=== PATIENT | male | born 1985 | race Caucasian/White ===

== ENCOUNTER 2024-07-01 08:59 | Outpatient (AMB) | payer OTHER, SELFPAY ==
--- NOTE | 2024-07-01 09:14 | A.OFFPC_ITS ---
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 Intake Note: New patient visit Freezer Assistant Required: No Medication List - Last Reconciled 07/01/24 by Barbra Ellis PA-C dupilumab (Dupixent) mg subcut Tobacco use date assessed: 07/01/24 Dental Screening Dental Screen Date: 07/01/24 Did you have a dental visit in the last 12 months?: Yes Did you have a dental problem in the last 6 months where you did not have access to dental care?: No Was dental information given to patient?: Patient has dentist HPI MATTRESS FILLER Est care HPI Details Patient is a 39-year-old male with a significant past medical history of eczema, hyperlipidemia presenting [facility] to [facility]. -he does complain today of flank pain on the. He states that it started on Friday and woke him up in the middle of the night. He is very worried that he is developing a kidney stone. He denies any known history of stones and has not noticed any blood in the urine. No urinary changes. He states he does not know why you would otherwise have back pain unless it was related to shoveling but he shoveled over the weekend. The pain today is resolved. CV: BP WNL. Last lipids were a little elevated. no cp or sob. He does get intermittent palpitations but less since reducing stress at work. He has had a neg ETT and holter and echo last year. He did follow with cardiology who states no need for further workup/eval unless anything changes. Derm: following with [facility] for management of eczema. Has been well controlled since starting dupixent. 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 1. Little interest or pleasure in doing things: not at all 2. Feeling down, depressed, or hopeless: not at all 3. Trouble falling or staying asleep, or sleeping too much: not at all 4. Feeling tired or having little energy: not at all 5. Poor appetite or overeating: several days 6. Feeling bad about yourself - or that you are a failure or have let yourself or your family down: not at all 7. Trouble concentrating on things, such as reading the newspaper or watching television: not at all 8. Moving or speaking so slowly that other people could have noticed. Or the opposite - being so fidgety or restless that you have been moving around a lot more than usual: not at all 9. Thoughts that you would be better off or of hurting yourself in some way: not at all Total score: 1 Depression Screening Interpretation: Negative Depression Screening Done: Yes 08830 - PHQ-9 Billing: Yes Source: Developed by Drs. Kin De La Cruz, Lizzie Shah, Dallin Romero and colleagues, with an educational ambar from [employer]. Thrive Questionnaire Date Thrive assessed: 06/28/24 I am a: Patient What is your living situation today?: I have a steady place to live Within the past 12 months, did the food you bought not last and you didn't have the money to get more?: Never true Within the past 12 months, did you worry whether your food would run out before you got money to buy more?: Never true Do you have trouble paying for medicines?: No Do you have trouble getting transportation to medical appointments?: No Do you have trouble paying your heating and electricity bill?: No Do you have trouble taking care of your child, family member or friend?: No Do you have trouble with day-to-day activities such as bathing, preparing meals, shopping, managing finances, etc.?: No Are you currently unemployed and looking for a job?: No Are you interested in more education?: No Please select the resources that you would like help with: None Currently or been in a relationship where the following occur: No concerns reported THRIVE Score: 0 AUDIT C Alcohol Use Questionnaire (AUDIT-C) 1. How often do you have a drink containing alcohol?: 2-3 times a week 2. How many drinks containing alcohol do you have on a typical day when you are drinking?: 1 or 2 3. How often do you have six or more drinks on one occasion?: Monthly Total Score: 5 Score Reviewed/Action Taken: Yes GUS-7 AMB Questionnaire GUS-7 Date GUS - 7 assessed: 07/01/24 Feeling nervous, anxious, or on edge: 0 = Not at all Not being able to stop or control worryin = Not at all Worrying too much about different things: 0 = Not at all Trouble relaxin = Not at all Being so restless that it is hard to sit still: 0 = Not at all Becoming easily annoyed or irritable: 0 = Not at all Feeling afraid as if something awful might happen: 0 = Not at all Total GUS-7 score (0-4 normal; 5-9 mild; 10-14 moderate; 15-21 severe): 0 Source: Developed by Drs. Kin De La Cruz, Lizzie Shah, Dallin Romero and colleagues, with an educational ambar from [employer]. GUS-7 Assessment Billing GUS-7 Assessment Tool: GUS-7 Assessment 07181 Physical exam (Primary Care) Vital Signs: Last Vital Signs Pulse 58 07/01/24 09:20 Resp 16 07/01/24 09:20 BP 126/72 07/01/24 09:20 Pulse Ox 95 07/01/24 09:20 Oxygen Delivery Method Room Air 07/01/24 09:20 Tobacco/Smoking Status: Tobacco use Status Tobacco use date assessed 07/01/24 07/01/24 09:21 Patient Tobacco Use Status Never used Tobacco 07/01/24 09:21 e-Cigarette/Vaping Use Never Used 07/01/24 09:21 PHQ-9: PHQ-9 Score PHQ-9: Total score 1 07/01/24 09:22 Depression Screening Interpretation: Negative Thrive Assessment: Date of Thrive Assessment Date Thrive assessed 06/28/24 07/01/24 09:21 Currently or been in a relationship where the following occur: No concerns reported Const Orientation/consciousness: patient oriented x3 HENMT Ears: hearing grossly normal bilaterally Neck Thyroid: Thyroid normal Lymphatic: no lymphadenopathy noted Resp Auscultation: clear to auscultation bilaterally Cardio Rate: regular rate Rhythm: regular rhythm Heart sounds: S1 normal heart sound present and S2 normal heart sound present GI Inspection: Yes normal to inspection Palpation (GI): Soft to palpation and Other GI palpation findings present (nontender, no cva tenderness) Auscultation: normoactive bowel sounds Rectal Exam - Male: Yes deferred Skin General skin exam: no rashes or lesions noted Neuro General: patient oriented x3, gait normal and no focal motor deficits Coding Level of Care Code Est Pt Level 4 (13764) Diagnoses Flank pain R10.9 Dyslipidemia E78.5 Atopic dermatitis, unspecified type L20.9 Atopic dermatitis type: unspecified Additional Codes GUS-7 Assessment Billing - GUS-7 Assessment Tool: GUS-7 Assessment 62381 ([id number]) PHQ-9 - 46844 - PHQ-9 Billing: Yes ([id number]) Assessment & Plan Assessment & Plan (1) Flank pain: Code(s): R10.9 - Unspecified abdominal pain Category: Medical Plan: u/s, labs and urine ordered will follow up pending tests (2) Dyslipidemia: Code(s): E78.5 - Hyperlipidemia, unspecified Category: Medical Plan: last ldl elevated. will check today and follow up pending tests (3) Atopic dermatitis: Code(s): L20.9 - Atopic dermatitis, unspecified Category: Medical Qualifiers: Atopic dermatitis type: unspecified Qualified Code(s): L20.9 - Atopic dermatitis, unspecified Plan: well managed on dupixent continue following with [facility] Orders: Orders Complete Blood Count Auto Diff Today E78.5 - Hyperlipidemia, unspecified, R10.9 - Unspecified abdominal pain, Z00.00 - Encounter for general adult medical examination without abnormal findings TSH reflex Free T4 Today E78.5 - Hyperlipidemia, unspecified, R10.9 - Unspecified abdominal pain, Z00.00 - Encounter for general adult medical examination without abnormal findings UA CC w/rflx Micro + Cult Today E78.5 - Hyperlipidemia, unspecified, R10.9 - Unspecified abdominal pain, Z00.00 - Encounter for general adult medical examination without abnormal findings, Z13.220 - Encounter for screening for lipoid disorders US renal BI Today E78.5 - Hyperlipidemia, unspecified, R10.9 - Unspecified abdominal pain, Z00.00 - Encounter for general adult medical examination without abnormal findings Comprehensive [place]. Panel Fast Today E78.5 - Hyperlipidemia, unspecified, R10.9 - Unspecified abdominal pain, Z00.00 - Encounter for general adult medical exami [facility] without abnormal findings Lipid Panel Today E78.5 - Hyperlipidemia, unspecified, R10.9 - Unspecified abdominal pain, Z00.00 - Encounter for general adult medical examination without abnormal findings
[2024-07-01 09:20] VITALS: BP 126/72; PULSE 58; RESP 16; O2SAT 95; BMI 31.8
== END 2024-07-01 10:13 | disposition home or self-care (01) ==
PROVIDERS: PCP Physician Assistant; Visit Provider Physician Assistant
DX: R10.9 Unspecified abdominal pain (principal); E78.5 Hyperlipidemia, unspecified; L20.9 Atopic dermatitis, unspecified

== ENCOUNTER → 2024-07-01 08:59 | Outpatient (BNVA) | payer OTHER, SELFPAY | PROVIDERS: PCP Physician Assistant; Visit Provider Physician Assistant | DX: R10.9 Unspecified abdominal pain (principal); E78.5 Hyperlipidemia, unspecified; L20.9 Atopic dermatitis, unspecified | CPT/HCPCS: 96127 ==

== ENCOUNTER 2024-07-02 08:38 | Outpatient (REF) | payer OTHER, SELFPAY ==
[2024-07-02 11:08] LABS: MANUAL DIFF FLAG NO
[2024-07-02 11:10] LABS: Basophils Percent Auto 0.5 % (0-2); Eosinophils Absolute Auto 0.1 X10*3/uL (0.0-0.4); Eosinophils Percent Auto 1.2 % (0-4); Hematocrit 40.2 % (42.0-52.0); Hemoglobin 13.9 g/dl (14.0-18.0); Imm Gran Abs Auto 0.01 X10*3/uL (0.00-0.03); Imm Gran Pct Auto 0.2 % (0.0-0.4); Lymphocytes Absolute Auto 1.6 X10*3/uL (1.2-4.9); Lymphocytes Percent Auto 26.4 % (20-40); Mean Corpuscular HGB Conc 34.6 g/dl (31.0-36.0); Mean Corpuscular Volume 89.5 fL (80.0-98.0); Mean Platelet Volume 9.4 fL (9.4-12.4); Monocytes Absolute Auto 0.5 X10*3/uL (0.1-1.2); Monocytes Percent Auto 9.1 % (2-11); Neutrophils Absolute Auto 3.7 x10*3/uL (2.0-8.3); Neutrophils Percent Auto 62.6 % (45-73); Platelet Count 226 X10*3/uL (160-400); Red Blood Count 4.49 X10*6/uL (4.60-5.80); Red Cell Distribution Width 12.2 % (11.0-16.0); White Blood Count 5.9 X10*3/uL (4.8-10.8)
[2024-07-02 11:23] LABS: Appearance Urine Clear; Color Urine Yellow; Glucose Urine UA Negative (Negative); Leukocyte Esterase Urine Negative (Negative); Nitrite Urine Negative (Negative); Specific Gravity - Urine >= 1.030 (1.005-1.025); Urine Blood Negative (Negative); Urine Ketones Trace mg/dL (Negative); Urine Protein Negative (Neg-Trace)
[2024-07-02 11:42] LABS: Alanine Aminotransferase 41 U/L (0-40); Albumin Level 4.1 g/dL (3.5-5.0); Alkaline Phosphatase 64 U/L (39-117); Anion Gap 10 (12-20); Aspartate Amino Transferase 32 U/L (5-37); Bilirubin Total 0.8 mg/dL (0.0-1.0); Blood Urea Nitrogen 12 mg/dL (9-16); Calcium 9.3 mg/dL (8.4-10.2); Carbon Dioxide 27 mmol/L (22-29); Chloride 105 mmol/L (96-108); Cholesterol 230 mg/dL (<200); Estimated Glomerular Filt Rate > 60; Glucose Fasting 82 mg/dL (60-99); HDL Cholesterol 43 mg/dL (>40); LDL Cholesterol Calculated 163 mg/dL (<100); Sodium 138 mmol/L (135-145); Total Protein 7.6 g/dL (6.5-8.0); Triglycerides 124 mg/dL (<150)
== END 2024-07-02 08:39 | disposition home or self-care (01) ==
LOC: HO.WFDLDS 08:38
PROVIDERS: Visit Provider Physician Assistant
DX: Z00.00 Encounter for general adult medical examination without abnormal findings (principal); R10.9 Unspecified abdominal pain; E78.5 Hyperlipidemia, unspecified; Z13.220 Encounter for screening for lipoid disorders
CPT/HCPCS: 36415; 80053; 80061; 81003; 84443; 85025

== ENCOUNTER 2024-08-02 16:05 | Outpatient (REF) | payer OTHER, SELFPAY ==
--- NOTE | ~2024-08-02 | US_ITS ---
EXAMINATION: US KIDNEY BILATERAL HISTORY: R10.9 - FLANK PAIN TECHNIQUE: Real-time grayscale ultrasound imaging of the kidneys was performed and images were reviewed. COMPARISON: There are no prior studies for comparison. FINDINGS: Right kidney: The right kidney measures 10.8 x 4.2 x 4.9 cm. Renal parenchymal echotexture and thickness are normal. There are no masses. There is no hydronephrosis or renal calculi. Left Kidney: The left kidney measures 12.0 x 6.2 x 4.0 cm. Renal parenchymal echotexture and thickness are normal. There are no masses. There is no hydronephrosis or renal calculi. Incidental note is made of an echogenic focus in the spleen which may represent a calcification. US/US renal BI IMPRESSION: Unremarkable renal ultrasound. Electronically signed by: Kin Lam MD 08/03/2024 08:35 AM EDT
== END 2024-08-02 16:06 | disposition home or self-care (01) ==
LOC: HO.US 16:05
PROVIDERS: PCP Physician Assistant; Visit Provider Physician Assistant
DX: R10.9 Unspecified abdominal pain (principal); E78.5 Hyperlipidemia, unspecified
CPT/HCPCS: 76775

== ENCOUNTER → 2024-08-02 16:06 | Outpatient (BNV) | payer OTHER, SELFPAY | PROVIDERS: PCP Physician Assistant; Visit Provider Radiology Diagnostic Radiology | DX: R10.9 Unspecified abdominal pain (principal) | CPT/HCPCS: 76775 ==

== ENCOUNTER 2024-09-23 08:01 | Outpatient (REF) | payer OTHER, SELFPAY ==
--- NOTE | ~2024-09-23 | US_ITS ---
EXAMINATION: US ABDOMEN HISTORY: D73.89 - Other diseases of spleen TECHNIQUE: Real-time grayscale ultrasound imaging of the abdomen was performed and images were reviewed. COMPARISON: Correlation is made with a renal ultrasound dated 08/02/2024. FINDINGS: Liver: The right lobe of the liver measures 15.5 cm in size. The left lobe of the liver measures 8.5 cm in size. The liver demonstrates normal homogeneous echotexture. No focal mass or intrahepatic biliary ductal dilatation is identified. There is normal hepatopedal flow in the portal vein. Gallbladder and biliary tree: The gallbladder is unremarkable, without evidence of calculi, wall thickening, or pericholecystic fluid. There is no sonographic Johnson sign. The common bile duct is normal in caliber measuring 2 mm. Kidneys: The right kidney measures 11.3 cm in length and demonstrates a 3 mm nonobstructing calculus in the interpolar region. There is no mass or hydronephrosis. The left kidney measures 11.8 cm in length and is unremarkable. Pancreas: Pancreas is obscured by bowel gas. Spleen: The spleen is normal in size and contour, measuring 10.2 cm in length. There are probable vascular calcifications. Abdominal aorta and inferior vena cava: The visualized portions of the abdominal aorta and inferior vena cava are normal in caliber. There is no free fluid in the abdomen. US/US abdomen complete IMPRESSION: 3 mm nonobstructing right renal calculus. Otherwise unremarkable abdominal ultrasound. Electronically signed by: Kin Lam MD 09/23/2024 08:37 AM EDT
== END 2024-09-23 08:02 | disposition home or self-care (01) ==
LOC: HO.US 08:01
PROVIDERS: PCP Physician Assistant; Visit Provider Physician Assistant
DX: D73.89 Other diseases of spleen (principal)
CPT/HCPCS: 76700

== ENCOUNTER → 2024-09-23 08:02 | Outpatient (BNV) | payer OTHER, SELFPAY | PROVIDERS: PCP Physician Assistant; Visit Provider Radiology Diagnostic Radiology | DX: N20.0 Calculus of kidney (principal) | CPT/HCPCS: 76700 ==

== ENCOUNTER 2024-11-19 08:35 | Outpatient (AMB) | payer OTHER, SELFPAY ==
--- NOTE | 2024-11-19 08:40 | MHC.OFFVIS ---
Intake Visit Reasons: nephrlothiasis Intake Note: Patient is present for NEPHRLOTHIASIS Urology Medication:NONE Antibiotic Allergy:NONE Blood Thinner:NONE Fabric Coating Supervisor Required: No Allergies No Known Allergies Allergy (Verified 11/19/24 08:43) [facility] Medical History (Updated 09/23/24 @ 13:06 by Barbra Ellis PA-C) Basal cell carcinoma Surgical History (Updated 07/01/24 @ 09:28 by Marilu Beth CMA) Hx of appendectomy Social History (Updated 07/01/24 @ 09:29 by Marilu Beth CMA) Housing: House Alcohol intake: current Patient Tobacco Use Status: Never used Tobacco e-Cigarette/Vaping Use: Never Used Second Hand Smoke Exposure: No service: No Current occupational status: employed 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 Current occupational exposures/hazards: No Cognitive needs: No Hearing needs: No Vision needs: Yes (contacts, glasses) Results AMB Urinalysis, Automated UA Leukoctes 0 Dave/uL Last Edit by JACK Brown on 11/19/24 09:33 UA Nitrite Negative Last Edit by JACK Brown on 11/19/24 09:33 UA Urobilinogen 0.2 mg/dL Last Edit by JACK Brown on 11/19/24 09:33 UA Protein 0 mg/dL Last Edit by JACK Brown on 11/19/24 09:33 UA pH 7.0 Last Edit by JACK Brown on 11/19/24 09:33 UA Blood 0 Maikel/uL Last Edit by JACK Brown on 11/19/24 09:33 UA Specific [place] 1.010 Last Edit by JACK Brown on 11/19/24 09:33 UA Ketone Negative Last Edit by JACK Brown on 11/19/24 09:33 UA Bilirubin 0 mg/dL Last Edit by JACK Brown on 11/19/24 09:33 UA Glucose 0 mg/dL Last Edit by JACK Brown on 11/19/24 09:33 Assessment & Plan Assessment & Plan Orders: Orders AMB Urinalysis Automated Today Z13.9 - Encounter for screening, unspecified US renal BI 12 Months N20.0 - Calculus of kidney Coding
--- OUTSIDE RECORDS SUMMARY | 2024-11-19 08:43 | XMS_ITS | Clinical Summary ---
Author Organization [facility] Address [address] [place] [address] Care Team Providers Care Dixonac Operator Name Role Phone Poncho Correa Primary Care Provider Francois lable Allergies Active Allergy Reactions Severity Noted Date Comments Septra I.V. 06/05/2020 Medications Medication Sig Dispensed Refills Start Date End Date Status mometasone (ELOCON) 0.1 % ointment Apply bid X 10-14 days 45 g 1 06/05/2020 Active mupirocin (BACTROBAN) 2 % ointment Aply to splits bid/prn 22 g 1 06/05/2020 Active Social History Tobacco Use Types Packs/Day Years Used Date Smoking Tobacco: Never Assessed Sex Assigned at Date Recorded Not on file Last Filed Vital Signs Vital Sign Reading Time Taken Comments Blood Pressure 125/70 10/17/2020 8:14 AM EDT Pulse 56 10/17/2020 8:14 AM EDT Temperature - - Respiratory Rate - - Oxygen Saturation - - Inhaled Oxygen Concentration - - Weight 97.1 kg (214 lb) 10/17/2020 8:14 AM EDT Height 180.3 cm (5' 11 ) 10/17/2020 8:14 AM EDT Body Mass Index 29.85 10/17/2020 8:14 AM EDT Plan of Treatment Health Maintenance Due Date Last Done Comments Covid-19 Vaccine (#1) 1984 TOBACCO CHECK/ADVISE 01/26/2002 DTAP/TDAP/TD (1 - Tdap) 01/26/2003 CHOLESTEROL SCREENING 2004 BASELINE HEALTH EXAM 40-64 2024 BMI CHECK/ADVISE 05/12/2024 INFLUENZA (#1) 2025 03/15/2018, 06/28/2017 PNEUMOCOCCAL VACCINE FOR HIG H RISK PATIENTS (#1) 01/26/2049 Care Teams Dixonac Operator Relationship Specialty Start Date End Date Poncho Correa PCP - General Internal Medicine 03/29/20
== END 2024-11-19 10:32 | disposition home or self-care (01) ==
LOC: HO.HUSH 08:36
PROVIDERS: PCP Physician Assistant; Visit Provider Urology
DX: Z13.9 Encounter for screening, unspecified (principal)

== ENCOUNTER → 2024-11-19 08:35 | Outpatient (BNVA) | payer OTHER, SELFPAY | PROVIDERS: PCP Physician Assistant; Visit Provider Urology | DX: N20.0 Calculus of kidney (principal) | CPT/HCPCS: 81003 ==

== ENCOUNTER 2024-12-23 07:26 | Outpatient (REF) | payer OTHER, SELFPAY ==
--- NOTE | ~2024-12-23 | CT_ITS ---
CLINICAL HISTORY: D73.89 - Other diseases of spleen --- Additional Notes or Special Instructions: ?splenic calcifications Exam: CT abdomen and pelvis without IV contrast Comparison: US/OK/SR - US ABDOMEN COMPLETE - 09/23/24 08:07 EDT Findings: The lack of intravenous contrast hampers the evaluation of solid organs and the ability to detect and characterize soft tissue abnormalities. Normal lung bases. Liver, gallbladder, spleen, pancreas, adrenal glands, kidneys, ureters, bladder and reproductive organs are unremarkable. No urolithiasis or obstructive uropathy. No calcification in the spleen. Unremarkable vasculature. No adenopathy. GI tract demonstrates nothing unusual, status post appendectomy. Stomach is distended with high density enteric contrast, which has reached the distal small bowel. Numerous punctate hyperdense foci in the proximal colon, most likely ingested. No free fluid or free air in the abdomen or pelvis. Unremarkable abdominopelvic wall. Mild degenerative changes of the thoracolumbar spine. No acute osseous abnormality. Impression: No acute finding. No splenic calcification, as queried. This document has been electronically signed by: Mikaela Acevedo MD on 12/23/2024 14:33:55
== END 2024-12-23 07:27 | disposition home or self-care (01) ==
LOC: HO.CT 07:26
PROVIDERS: PCP Student in an Organized Health Care Education/Training Program; Visit Provider Physician Assistant
DX: D73.89 Other diseases of spleen (principal)
CPT/HCPCS: 74176

== ENCOUNTER → 2024-12-23 07:28 | Outpatient (BNV) | payer OTHER, SELFPAY | PROVIDERS: PCP Student in an Organized Health Care Education/Training Program; Visit Provider Radiology Diagnostic Radiology | DX: M51.35 Other intervertebral disc degeneration, thoracolumbar region (principal) | CPT/HCPCS: 74176 ==

== ENCOUNTER 2025-03-31 08:01 | Outpatient (AMB) | payer OTHER, SELFPAY ==
--- NOTE | 2025-03-31 08:12 | MHC.PC.OV ---
Vital Signs 03/31/25 08:13 Height 5 ft 9.49 in Weight 212 lb 4 oz BMI 30.9 BP 116/84 Blood Pressure Location Lt brachial Position Sitting Respiration 14 Pulse 66 Pulse Source Pulse Oximeter Temp 98.1 F Temp Source Oral Pulse Oximetry (%) 98 Oxygen Delivery Method Room Air Intake Visit Reasons: Annual PE Intake Note: Physical Pharmacognosist Required: No Allergies sulfamethoxazole (From Bactrim) Allergy (Unknown, Verified 03/31/25 08:12) Rash trimethoprim (From Bactrim) Allergy (Unknown, Verified 03/31/25 08:12) Rash Medication List - Last Reconciled 03/31/25 by Barbra Ellis PA-C dupilumab (Dupixent) mg subcut Tobacco use date assessed: 03/31/25 Dental Screening Dental Screen Date: 07/01/24 HPI Annual PE HPI Details Patient is a 40-year-old male with a significant past medical history of eczema, hyperlipidemia presenting today for a cpe. CV: BP WNL. Last lipids were a little elevated. no cp or sob. He does get intermittent palpitations but less since reducing stress at work. He has had a neg ETT and holter and echo (2022/2023). He did follow with cardiology approx 2023 who states no need for further workup/eval unless anything changes. Derm: following with [facility] for management of eczema. Has been well controlled since starting dupixent. 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 Current occupational exposures/hazards: No Cognitive needs: No Hearing needs: No Vision needs: Yes (contacts, glasses) Questionnaire Thrive Questionnaire Date Thrive assessed: 06/28/24 I am a: Patient What is your living situation today?: I have a steady place to live Within the past 12 months, did the food you bought not last and you didn't have the money to get more?: Never true Within the past 12 months, did you worry whether your food would run out before you got money to buy more?: Never true Do you have trouble paying for medicines?: No Do you have trouble getting transportation to medical appointments?: No Do you have trouble paying your heating and electricity bill?: No Do you have trouble taking care of your child, family member or friend?: No Do you have trouble with day-to-day activities such as bathing, preparing meals, shopping, managing finances, etc.?: No Are you currently unemployed and looking for a job?: No Are you interested in more education?: No Please select the resources that you would like help with: None Currently or been in a relationship where the following occur: No concerns reported THRIVE Score: 0 AUDIT C Alcohol Use Questionnaire (AUDIT-C) 1. How often do you have a drink containing alcohol?: 4 or more times a week 2. How many drinks containing alcohol do you have on a typical day when you are drinking?: 1 or 2 3. How often do you have six or more drinks on one occasion?: Never Total Score: 4 GUS-7 AMB Questionnaire GUS-7 Date GUS - 7 assessed: 07/01/24 Source: Developed by Drs. Kin De La Cruz, Lizzie Shah, Dallin Romero and colleagues, with an educational ambar from [employer]. Physical exam (Primary Care) Tobacco/Smoking Status: Tobacco use Status Tobacco use date assessed 07/01/24 07/01/24 09:21 Patient Tobacco Use Status Never used Tobacco 07/01/24 09:29 e-Cigarette/Vaping Use Never Used 07/01/24 09:29 Thrive Assessment: Date of Thrive Assessment Date Thrive assessed 06/28/24 07/01/24 09:21 Currently or been in a relationship where the following occur: No concerns reported Const Orientation/consciousness: patient oriented x3 HENMT Ears: hearing grossly normal bilaterally and TM's normal bilaterally General nose exam: No nasal polyps present Face and sinus: Yes sinuses nontender Mouth: Normal oral and palatal mucosa present Eyes Pupils: Equal, round and reactive pupils present EOM: EOMs intact bilaterally Neck Neck: Yes full ROM and Yes no lymphadenopathy Thyroid: Thyroid normal Chest Chest palpation & inspection: normal inspection of the chest Resp Auscultation: clear to auscultation bilaterally Cardio Rate: regular rate Rhythm: regular rhythm Heart sounds: S1 normal heart sound present and S2 normal heart sound present Peripheral pulses: Peripheral pulses 2+ throughout GI Other: Soft, nontender Auscultation: normal bowel sounds Rectal Exam - Male: Yes deferred General: Yes no CVA tenderness Penis: normal penis Scrotum: scrotum normal Testes: Testes normal Back/Spine/Pelvis Other: Nontender Back: no CVA tenderness Skin General skin exam: no rashes or lesions noted Neuro General: patient oriented x3, gait normal, CN's II-XI intact bilaterally and deep tendon reflexes 2+ bilaterally Cranial nerves: Yes Equal, round and reactive pupils present Motor exam (neuro): 5/5 motor strength present throughout Sensory Exam: double simultaneous stimulation for sensation normal Coordination: [id number] test normal and Romberg test negative Extrem General: Yes normal to inspection and Yes full ROM Psych Affect: normal affect Attitude: cooperative Thought process: Normal thought process present Thought content: Normal thought content present Insight: Good insight present (Psych) Judgement: Good judgement present (Psych) Results Reviewed Results Reviewed: Findings: The lack of intravenous contrast hampers the evaluation of solid organs and the ability to detect and characterize soft tissue abnormalities. Normal lung bases. Liver, gallbladder, spleen, pancreas, adrenal glands, kidneys, ureters, bladder and reproductive organs are unremarkable. No urolithiasis or obstructive uropathy. No calcification in the spleen. Unremarkable vasculature. No adenopathy. GI tract demonstrates nothing unusual, status post appendectomy. Stomach is distended with high density enteric contrast, which has reached the distal small bowel. Numerous punctate hyperdense foci in the proximal colon, most likely ingested. No free fluid or free air in the abdomen or pelvis. Unremarkable abdominopelvic wall. Mild degenerative changes of the thoracolumbar spine. No acute osseous abnormality. Impression: No acute finding. No splenic calcification, as queried. Laboratory Tests 07/02/24 08:39 WBC 5.9 RBC 4.49 L Hgb 13.9 L Hct 40.2 L Plt Count 226 Sodium 138 Potassium 4.0 Chloride 105 Carbon Dioxide 27 Anion Gap 10 L BUN 12 Creatinine 0.76 Estimated GFR > 60 Fasting Glucose 82 Calcium 9.3 Total Bilirubin 0.8 AST 32 ALT 41 H Alkaline Phosphatase 64 Triglycerides 124 Cholesterol 230 H LDL Cholesterol, Calc 163 H HDL Cholesterol 43 TSH 2.20 Coding Level of Care Code Est Pt Prev Care 40-64y(64164) Diagnoses Routine general medical examination at a health care facility Z00.00 Dyslipidemia E78.5 Atopic dermatitis, unspecified type L20.9 Atopic dermatitis type: unspecified Assessment & Plan Assessment & Plan (1) Routine general medical examination at a health care facility: Code(s): Z00.00 - Encounter for general adult medical examination without abnormal findings Plan: reviewed utd immunizations from pharmacy labs ordered will follow up pending tests (2) Dyslipidemia: Code(s): E78.5 - Hyperlipidemia, unspecified Category: Medical Plan: will recheck lipids (3) Atopic dermatitis: Code(s): L20.9 - Atopic dermatitis, unspecified Category: Medical Qualifiers: Atopic dermatitis type: unspecified Qualified Code(s): L20.9 - Atopic dermatitis, unspecified Plan: continue follow up with derm Orders: Orders Lipid Panel Today D64.9 - Anemia, unspecified, E78.5 - Hyperlipidemia, unspecified, L20.9 - Atopic dermatitis, unspecified IRON PROFILE Today D64.9 - Anemia, unspecified, E78.5 - Hyperlipidemia, unspecified, L20.9 - Atopic dermatitis, unspecified TSH reflex Free T4 Today D64.9 - Anemia, unspecified, E78.5 - Hyperlipidemia, unspecified, L20.9 - Atopic dermatitis, unspecified Basic Metabolic Panel Today D64.9 - Anemia, unspecified, E78.5 - Hyperlipidemia, unspecified, L20.9 - Atopic dermatitis, unspecified Vitamin B12 and Folate Today D64.9 - Anemia, unspecified, E78.5 - Hyperlipidemia, unspecified, L20.9 - Atopic dermatitis, unspecified UA CC w/rflx Micro + Cult Today D64.9 - Anemia, unspecified, E78.5 - Hyperlipidemia, unspecified, L20.9 - Atopic dermatitis, unspecified, R30.0 - Dysuria Microalbumin, Random (w Creat) Today D64.9 - Anemia, unspecified, E78.5 - Hyperlipidemia, unspecified, L20.9 - Atopic dermatitis, unspecified Complete Blood Count Auto Diff Today D64.9 - Anemia, unspecified, E78.5 - Hyperlipidemia, unspecified, L20.9 - Atopic dermatitis, unspecified Ferritin Today D64.9 - Anemia, unspecified, E78.5 - Hyperlipidemia, unspecified, L20.9 - Atopic dermatitis, unspecified Liver Panel Today D64.9 - Anemia, unspecified, E78.5 - Hyperlipidemia, unspecified, L20.9 - Atopic dermatitis, unspecified
[2025-03-31 08:13] VITALS: BP 116/84; PULSE 66; RESP 14; TEMP 36.7; O2SAT 98; BMI 30.9
== END 2025-03-31 08:43 | disposition home or self-care (01) ==
LOC: HO.HMCFM 08:02
PROVIDERS: PCP Physician Assistant; Visit Provider Physician Assistant
DX: Z00.00 Encounter for general adult medical examination without abnormal findings (principal); E78.5 Hyperlipidemia, unspecified; L20.9 Atopic dermatitis, unspecified